=== PATIENT | female | born 1955 | race Caucasian/White ===

== ENCOUNTER 2019-04-01 14:30 | Inpatient (IN) ==
[2019-04-01] MEDS ORDERED: *HR* Heparin 5,000 UNIT/ML VIAL IVP PRN ×2 (14:49)
[2019-04-01] MEDS ORDERED: 0.9 % Sodium Chloride 1,000 ML IVC ONE ×2 (14:49→15:58)
[2019-04-01] MEDS ORDERED: *HR* Heparin 5,000 UNIT/ML VIAL IVP ONE (14:49)
[2019-04-01] MEDS: Nitroglycerin 0.4 MG TAB.SUBL SL PRN ×2 (15:07→15:13)
[2019-04-01] MEDS ORDERED: Ondansetron 4 MG/2 ML VIAL IVP ONE (15:16)
[2019-04-01 15:26] LABS: Hematocrit 36.2 % (35.3-44.9); Hemoglobin 12.6 g/dL (11.5-15.4); Mean Corpuscular HGB Conc 34.8 g/dL (31.6-35.5); Mean Corpuscular Hemoglobin 29.7 pg (28.0-33.3); Mean Corpuscular Volume 85.4 fL (83.0-100.0); Mean Platelet Volume 9.6 fL (9.4-12.4); Platelet Count 182 K/mcL (140-400); Red Blood Count 4.24 M/mcL (3.82-4.97); Red Cell Distribution Width 11.9 % (11.5-14.5); White Blood Count 6.7 K/mcL (4.3-11.1)
[2019-04-01] MEDS ORDERED: Nitroglycerin 25 MG/250 ML INFUS..BTL IVC SCH (15:30)
[2019-04-01] MEDS ORDERED: *HR* LORazepam 2 MG/ML VIAL IVP ONE (15:33)
[2019-04-01] MEDS ORDERED: *HR* FentaNYL (PF) 100 MCG/2 ML VIAL IVP ONE (15:33)
[2019-04-01 15:43] LABS: Prothrombin Time 11.9 Seconds (9.4-12.1)
[2019-04-01 15:45] LABS: Heparin anti-factor XA UFH 0.01 IU/mL (0.30-0.70)
[2019-04-01 15:47] LABS: Alanine Aminotransferase 32 Units/L (7-52); Albumin 4.4 g/dL (3.5-5.7); Albumin/Globulin Ratio 1.8 (1.1-2.2); Alkaline Phosphatase 76 Units/L (34-104); Aspartate Amino Transferase 27 Units/L (13-39); BUN/Creatinine Ratio 19 (6-26); Bilirubin,Total 0.9 mg/dL (0.3-1.0); Blood Urea Nitrogen 14 mg/dL (8-23); Calcium 9.5 mg/dL (8.6-10.3); Carbon Dioxide 24 mEq/L (23-29); Chloride 100 mEq/L (98-107); Globulin 2.4 g/dL (2.4-3.5); Glucose 110 mg/dL (70-105); Osmolality,Calculated 285 (280-300); Potassium 3.5 mEq/L (3.5-5.1); Sodium 137 mEq/L (136-145); Total Protein 6.8 g/dL (6.4-8.9); eGFR For African Americans > 60 (> 60); eGFR For Non-African Americans > 60 (> 60)
[2019-04-01 15:52] LABS: Troponin I 1.05 ng/mL (< 0.04)
[2019-04-01] MEDS ORDERED: Isovue-370 500 ML BOTTLE IVP ONE (15:59)
[2019-04-01] MEDS: Heparin 25,000 UNIT/250 ML D5W 25,000 UNIT/250 ML IV.SOLN IVC SCH (16:51)
[2019-04-01] MEDS ORDERED: *HR* Metoprolol 5 MG/5 ML VIAL IVP PRN (17:24)
[2019-04-01] MEDS ORDERED: Melatonin 3 MG TABLET PO PRN (22:11)
[2019-04-02] MEDS ORDERED: levoFLOXacin 750 MG/150 ML 750 MG/150 ML BAG IVPB SCH (02:00)
[2019-04-02 03:08] LABS: Basophils % 0.2 %; Hematocrit 33.3 % (35.3-44.9); Hemoglobin 11.4 g/dL (11.5-15.4); Immature Granulocytes % 0.2 % (0-4); Lymphocytes # 1.2 K/mcL (0.6-4.6); Lymphocytes % 20.1 %; Mean Corpuscular HGB Conc 34.2 g/dL (31.6-35.5); Mean Corpuscular Hemoglobin 29.8 pg (28.0-33.3); Mean Corpuscular Volume 87.2 fL (83.0-100.0); Mean Platelet Volume 9.6 fL (9.4-12.4); Monocytes # 0.3 K/mcL (0.0-1.3); Neutrophils # 4.2 K/mcL (1.6-8.9); Platelet Count 153 K/mcL (140-400); Red Blood Count 3.82 M/mcL (3.82-4.97); Red Cell Distribution Width 12.1 % (11.5-14.5); Segmented Neutrophils % 73.5 %; White Blood Count 5.7 K/mcL (4.3-11.1)
[2019-04-02] MEDS ORDERED: Acetaminophen IV 1,000 MG/100 ML INFUS..BTL IVPB ONE (04:48)
[2019-04-02] MEDS ORDERED: *HR* HYDROmorphone (PF) 1 MG/ML SYRINGE IVP ONE (08:59)
[2019-04-02] MEDS: Ondansetron 4 MG/2 ML VIAL IVP PRN ×2 (09:10→09:12)
[2019-04-02] MEDS ORDERED: *HR* LORazepam 0.5 MG TABLET PO PRN (14:04)
[2019-04-02] MEDS ORDERED: Furosemide 20 MG/2 ML VIAL IVP ONE (14:44)
[2019-04-02] MEDS: Pregabalin 50 MG CAPSULE PO PRN (20:39)
[2019-04-02] MEDS: *HR* OxyCODONE/APAP 5/325 TABLET PO PRN (20:40)
[2019-04-02] MEDS: Heparin 25,000 UNIT/250 ML D5W 25,000 UNIT/250 ML IV.SOLN IVC SCH (21:38)
[2019-04-03 01:44] LABS: Basophils % 0.2 %; Eosinophils % 0.2 %; Hematocrit 30.8 % (35.3-44.9); Hemoglobin 10.7 g/dL (11.5-15.4); Immature Granulocytes % 0.2 % (0-4); Lymphocytes # 1.2 K/mcL (0.6-4.6); Lymphocytes % 24.6 %; Mean Corpuscular HGB Conc 34.7 g/dL (31.6-35.5); Mean Corpuscular Hemoglobin 29.9 pg (28.0-33.3); Mean Platelet Volume 9.5 fL (9.4-12.4); Monocytes # 0.4 K/mcL (0.0-1.3); Monocytes % 7.8 %; Neutrophils # 3.2 K/mcL (1.6-8.9); Platelet Count 152 K/mcL (140-400); Red Blood Count 3.58 M/mcL (3.82-4.97); Red Cell Distribution Width 11.9 % (11.5-14.5); White Blood Count 4.8 K/mcL (4.3-11.1)
[2019-04-03 01:49] LABS: INR 1.2; Prothrombin Time 13.9 Seconds (9.4-12.1)
[2019-04-03 02:00] LABS: BUN/Creatinine Ratio 16 (6-26); Blood Urea Nitrogen 11 mg/dL (8-23); Calcium 8.9 mg/dL (8.6-10.3); Carbon Dioxide 27 mEq/L (23-29); Chloride 104 mEq/L (98-107); Glucose 107 mg/dL (70-105); Osmolality,Calculated 284 (280-300); Potassium 3.7 mEq/L (3.5-5.1); Sodium 137 mEq/L (136-145); eGFR For African Americans > 60 (> 60); eGFR For Non-African Americans > 60 (> 60)
[2019-04-03] MEDS: *HR* OxyCODONE/APAP 5/325 TABLET PO PRN ×2 (03:30→23:37)
[2019-04-03] MEDS ORDERED: Aminoglycoside Consult 1 EACH MC ONE (07:28)
[2019-04-03] MEDS: Pregabalin 50 MG CAPSULE PO PRN (09:58)
[2019-04-03] MEDS ORDERED: Acetaminophen 325 MG TABLET PO PRN (13:40)
[2019-04-03] MEDS ORDERED: Verapamil 5 MG/2 ML VIAL ONE (15:30)
[2019-04-03] MEDS ORDERED: Nitroglycerin 1,000 MCG/10 ML VIAL IV ONE (15:31)
[2019-04-03] MEDS ORDERED: *HR* Heparin 10,000 UNIT/10 ML VIAL ONE (15:31)
[2019-04-03] MEDS ORDERED: 0.9 % Sodium Chloride 1,000 ML ONE (15:31)
[2019-04-03] MEDS ORDERED: Heparin 1,000 UNITS/500 mL 500 ML ONE (15:31)
[2019-04-03] MEDS ORDERED: ISOVUE-370 200 ML INFUS..BTL ONE (15:31)
[2019-04-03] MEDS ORDERED: *HR* Midazolam HCl 2 MG/2 ML VIAL ONE (15:43)
[2019-04-03] MEDS ORDERED: *HR* FentaNYL (PF) 100 MCG/2 ML VIAL ONE (15:44)
[2019-04-03] MEDS ORDERED: levoFLOXacin 750 MG/150 ML 750 MG/150 ML BAG IVPB SCH ×2 (15:45→18:00)
[2019-04-03] MEDS ORDERED: Piperacillin/Tazobactam 3.375 GM in 0.9 % Sodium Chloride Mini Bag 100 ML IVPB SCH ×2 (16:00→18:00)
[2019-04-03] MEDS ORDERED: VANCOMYCIN 5 MG/ML IVP SCH ×3 (16:30)
[2019-04-03] MEDS ORDERED: *HR* Heparin 5,000 UNIT/ML VIAL SQ SCH (18:00)
[2019-04-03 18:38] LABS: Hematocrit 32.4 % (35.3-44.9); Hemoglobin 10.9 g/dL (11.5-15.4)
[2019-04-03] MEDS: Ondansetron 4 MG/2 ML VIAL IVP PRN (20:16)
[2019-04-03 21:08] LABS: Bilirubin,Urine Negative (Negative); Blood,Urine Small (Negative); Clarity,Urine Clear (Clear); Color,Urine Yellow (Yellow); Glucose,Urine (UA) Normal (Normal); Ketones,Urine 40 mg/dL (Negative); Leukocyte Esterase,Urine Moderate (Negative); Nitrite,Urine Negative (Negative); PH,Urine 5.5 pH Units (5.0-8.0); Protein,Urine Negative (Neg-Trace); Specific Gravity,Urine > 1.030 (1.010-1.025)
[2019-04-03 21:09] LABS: Bacteria,Urine None Seen per hpf (None-Few); Hyaline Casts,Urine None Seen per lpf (None-Few); RBC,Urine 0-3 per hpf (0-3); Squamous Epithelial Cell,Urine Many per lpf (None-Few); WBC,Urine 30-50 per hpf (0-3)
[2019-04-03 22:18] LABS: Adenovirus Not Detected (Not Detect); Bordetella Pertussis Not Detected (Not Detect); Chlamydophila pneumoniae Not Detected (Not Detect); Coronavirus 229E Not Detected (Not Detect); Coronavirus HKU1 Not Detected (Not Detect); Coronavirus NL63 Not Detected (Not Detect); Coronavirus OC43 Not Detected (Not Detect); Human Metapneumovirus Not Detected (Not Detect); Human Rhinovirus/Enterovirus Not Detected (Not Detect); Influenza A Subtype 2009 H1 Not Detected (Not Detect); Influenza A Untypeable Not Detected (Not Detect); Influenza B Not Detected (Not Detect); Mycoplasma pneumoniae Not Detected (Not Detect); Parainfluenza Virus 1 Not Detected (Not Detect); Parainfluenza Virus 2 Not Detected (Not Detect); Parainfluenza Virus 3 Not Detected (Not Detect); Parainfluenza Virus 4 Not Detected (Not Detect); Respiratory Syncytial Virus Not Detected (Not Detect)
[2019-04-04 02:20] LABS: Eosinophils % 0.9 %; Hematocrit 31.3 % (35.3-44.9); Hemoglobin 10.6 g/dL (11.5-15.4); Immature Granulocytes % 0.6 % (0-4); Lymphocytes # 1.1 K/mcL (0.6-4.6); Lymphocytes % 30.8 %; Mean Corpuscular HGB Conc 33.9 g/dL (31.6-35.5); Mean Corpuscular Hemoglobin 29.2 pg (28.0-33.3); Mean Corpuscular Volume 86.2 fL (83.0-100.0); Mean Platelet Volume 9.5 fL (9.4-12.4); Monocytes # 0.4 K/mcL (0.0-1.3); Monocytes % 10.5 %; Platelet Count 150 K/mcL (140-400); Red Blood Count 3.63 M/mcL (3.82-4.97); Red Cell Distribution Width 11.9 % (11.5-14.5); Segmented Neutrophils % 57.2 %; White Blood Count 3.4 K/mcL (4.3-11.1)
[2019-04-04 02:39] LABS: BUN/Creatinine Ratio 13 (6-26); Blood Urea Nitrogen 8 mg/dL (8-23); Carbon Dioxide 26 mEq/L (23-29); Chloride 103 mEq/L (98-107); Glucose 89 mg/dL (70-105); Osmolality,Calculated 282 (280-300); Potassium 3.6 mEq/L (3.5-5.1); Sodium 137 mEq/L (136-145); eGFR For African Americans > 60 (> 60); eGFR For Non-African Americans > 60 (> 60)
[2019-04-04] MEDS ORDERED: Piperacillin/Tazobactam 3.375 GM in 0.9 % Sodium Chloride Mini Bag 100 ML IVPB SCH (05:00)
[2019-04-04] MEDS ORDERED: *HR* Heparin 5,000 UNIT/ML VIAL SQ SCH (06:00)
[2019-04-04] MEDS ORDERED: *HR* Heparin 5,000 UNIT/ML VIAL IVP PRN ×2 (11:06)
[2019-04-04] MEDS ORDERED: Heparin 25,000 UNIT/250 ML D5W 25,000 UNIT/250 ML IV.SOLN IVC SCH (11:15)
[2019-04-04 11:58] LABS: Hematocrit 34.2 % (35.3-44.9); Hemoglobin 11.9 g/dL (11.5-15.4); Mean Corpuscular HGB Conc 34.8 g/dL (31.6-35.5); Mean Corpuscular Hemoglobin 30.4 pg (28.0-33.3); Mean Corpuscular Volume 87.2 fL (83.0-100.0); Mean Platelet Volume 9.4 fL (9.4-12.4); Platelet Count 157 K/mcL (140-400); Red Blood Count 3.92 M/mcL (3.82-4.97); Red Cell Distribution Width 11.9 % (11.5-14.5); White Blood Count 3.4 K/mcL (4.3-11.1)
[2019-04-04 12:05] LABS: INR 1.2; Prothrombin Time 13.9 Seconds (9.4-12.1)
[2019-04-04] MEDS ORDERED: Heparin 1,000 UNITS/500 mL 500 ML ONE ×2 (14:23→16:05)
[2019-04-04] MEDS ORDERED: *HR* Heparin 10,000 UNIT/10 ML VIAL ONE (14:23)
[2019-04-04] MEDS ORDERED: ISOVUE-370 200 ML INFUS..BTL ONE ×3 (14:23→16:05)
[2019-04-04] MEDS ORDERED: 0.9 % Sodium Chloride 1,000 ML ONE ×2 (14:23→14:25)
[2019-04-04] MEDS ORDERED: Nitroglycerin 1,000 MCG/10 ML VIAL IV ONE (14:23)
[2019-04-04] MEDS ORDERED: *HR* Bivalirudin 250 MG VIAL IVC ONE (14:24)
[2019-04-04] MEDS ORDERED: *HR* Midazolam HCl 2 MG/2 ML VIAL ONE (14:24)
[2019-04-04] MEDS ORDERED: *HR* FentaNYL (PF) 100 MCG/2 ML VIAL ONE (14:25)
[2019-04-04 15:19] LABS: ANA IgG by ELISA NONE DETECTED (None Detected)
[2019-04-04] MEDS ORDERED: *HR* Ticagrelor 90 MG TABLET ONE (15:31)
[2019-04-04] MEDS ORDERED: levoFLOXacin 750 MG/150 ML 750 MG/150 ML BAG IVPB SCH (17:00)
[2019-04-04] MEDS ORDERED: *HR* Atropine Sulfate 1 MG/10 ML SYRINGE ONE (19:18)
[2019-04-04] MEDS: *HR* OxyCODONE/APAP 5/325 TABLET PO PRN (20:24)
[2019-04-05] MEDS: Ondansetron 4 MG/2 ML VIAL IVP PRN ×2 (01:01→08:16)
[2019-04-05 04:33] LABS: Basophils % 0.2 %; Eosinophils # 0.1 K/mcL (0.0-0.6); Eosinophils % 1.5 %; Hematocrit 32.8 % (35.3-44.9); Hemoglobin 11.2 g/dL (11.5-15.4); Immature Granulocytes % 0.2 % (0-4); Lymphocytes % 23.5 %; Mean Corpuscular HGB Conc 34.1 g/dL (31.6-35.5); Mean Corpuscular Hemoglobin 29.3 pg (28.0-33.3); Mean Corpuscular Volume 85.9 fL (83.0-100.0); Mean Platelet Volume 9.9 fL (9.4-12.4); Monocytes # 0.4 K/mcL (0.0-1.3); Monocytes % 9.4 %; Neutrophils # 2.6 K/mcL (1.6-8.9); Platelet Count 172 K/mcL (140-400); Red Blood Count 3.82 M/mcL (3.82-4.97); Segmented Neutrophils % 65.2 %
[2019-04-05 04:48] LABS: Chol/HDL Ratio 4.1 (0-4.9)
[2019-04-05 04:50] LABS: BUN/Creatinine Ratio 15 (6-26); Blood Urea Nitrogen 9 mg/dL (8-23); Calcium 9.1 mg/dL (8.6-10.3); Carbon Dioxide 26 mEq/L (23-29); Chloride 103 mEq/L (98-107); Glucose 169 mg/dL (70-105); Osmolality,Calculated 285 (280-300); Potassium 3.4 mEq/L (3.5-5.1); Sodium 136 mEq/L (136-145); eGFR For African Americans > 60 (> 60); eGFR For Non-African Americans > 60 (> 60)
[2019-04-05] MEDS: *HR* OxyCODONE/APAP 5/325 TABLET PO PRN (08:15)
[2019-04-05] MEDS ORDERED: Aspirin 81 MG TAB.CHEW PO SCH (09:00)
[2019-04-05 09:56] LABS: Serine Protease-3 Antibody 0 AU/mL (0-19)
[2019-04-05 11:22] VITALS: BP 113/64
[2019-04-05] MEDS ORDERED: *HR* Succinylcholine 200 MG/10 ML VIAL IVP ONE (12:36)
[2019-04-05] MEDS ORDERED: Lidocaine -MPF 2% 2 ML VIAL ONE (12:36)
[2019-04-05] MEDS ORDERED: *HR* FentaNYL (PF) 100 MCG/2 ML VIAL ONE (12:36)
[2019-04-05] MEDS ORDERED: *HR* Propofol 200 MG/20 ML VIAL IVP ONE (12:36)
== END 2019-04-05 14:29 | disposition home or self-care (01) | DRG 246 ==
LOC: EMEROOARM 14:30 → SUATTDRO 18:35 → 2NENU 18:35 → 2NNU 04-04 16:09
PROVIDERS: ADMIT Internal Medicine; ATTEND Internal Medicine

== ENCOUNTER 2019-05-26 08:22 | Observation (INO) ==
[2019-05-26] MEDS ORDERED: Nitroglycerin 0.4 MG TAB.SUBL SL PRN ×2 (08:29→10:55)
[2019-05-26 08:50] LABS: Basophils % 0.5 %; Eosinophils # 0.1 K/mcL (0.0-0.6); Eosinophils % 1.3 %; Hematocrit 39.9 % (35.3-44.9); Hemoglobin 13.8 g/dL (11.5-15.4); Immature Granulocytes % 0.3 % (0-4); Lymphocytes # 1.4 K/mcL (0.6-4.6); Lymphocytes % 35.5 %; Mean Corpuscular HGB Conc 34.6 g/dL (31.6-35.5); Mean Corpuscular Hemoglobin 29.5 pg (28.0-33.3); Mean Corpuscular Volume 85.3 fL (83.0-100.0); Monocytes # 0.3 K/mcL (0.0-1.3); Monocytes % 7.7 %; Neutrophils # 2.1 K/mcL (1.6-8.9); Platelet Count 193 K/mcL (140-400); Red Blood Count 4.68 M/mcL (3.82-4.97); Red Cell Distribution Width 12.8 % (11.5-14.5); Segmented Neutrophils % 54.7 %; White Blood Count 3.9 K/mcL (4.3-11.1)
[2019-05-26 08:52] LABS: INR 1.1; Prothrombin Time 12.5 Seconds (9.4-12.1)
[2019-05-26 08:55] LABS: Activated Partial Thrombo Time 35.3 Seconds (26.0-36.0)
[2019-05-26 09:15] LABS: BUN/Creatinine Ratio 25 (6-26); Blood Urea Nitrogen 16 mg/dL (8-23); Calcium 10.1 mg/dL (8.6-10.3); Carbon Dioxide 28 mEq/L (23-29); Chloride 101 mEq/L (98-107); Glucose 100 mg/dL (70-105); Osmolality,Calculated 289 (280-300); Potassium 3.8 mEq/L (3.5-5.1); Sodium 139 mEq/L (136-145); Troponin I < 0.03 ng/mL (< 0.04); eGFR For African Americans > 60 (> 60); eGFR For Non-African Americans > 60 (> 60)
[2019-05-26] MEDS ORDERED: Naloxone 0.4 MG/ML INJ IVP PRN (10:16)
[2019-05-26] MEDS ORDERED: Pregabalin 50 MG CAPSULE PO PRN (10:55)
[2019-05-26] MEDS ORDERED: *HR* Heparin 5,000 UNIT/ML VIAL SQ SCH (14:00)
[2019-05-26] MEDS: *HR* OxyCODONE/APAP 5/325 TABLET PO PRN (16:43)
[2019-05-27] MEDS ORDERED: Aspirin 81 MG TAB.CHEW PO SCH (09:00)
[2019-05-27] MEDS: *HR* OxyCODONE/APAP 5/325 TABLET PO PRN (16:05)
[2019-05-27 16:07] VITALS: BP 106/58
== END 2019-05-27 17:03 | disposition home or self-care (01) ==
LOC: 2ANU 08:22 → EMEROOARM 08:22 → SUATTDRO 09:36 → 2ANU 10:18
PROVIDERS: ADMIT Internal Medicine; ATTEND Family Medicine

== ENCOUNTER 2021-11-16 09:39 | Observation (INO) ==
[2021-11-16] MEDS ORDERED: Aspirin 81 MG TAB.CHEW PO STA (10:23)
[2021-11-16 10:29] LABS: Basophils % 0.6 %; Eosinophils # 0.1 K/mcL (0.0-0.6); Eosinophils % 1.8 %; Hematocrit 37.8 % (35.3-44.9); Hemoglobin 12.8 g/dL (11.5-15.4); Immature Granulocytes % 0.3 % (0-4); Lymphocytes # 1.1 K/mcL (0.6-4.6); Lymphocytes % 33.2 %; Mean Corpuscular HGB Conc 33.9 g/dL (31.6-35.5); Mean Corpuscular Hemoglobin 29.5 pg (28.0-33.3); Mean Corpuscular Volume 87.1 fL (83.0-100.0); Mean Platelet Volume 9.3 fL (9.4-12.4); Monocytes # 0.3 K/mcL (0.0-1.3); Monocytes % 8.4 %; Neutrophils # 1.9 K/mcL (1.6-8.9); Platelet Count 173 K/mcL (140-400); Red Blood Count 4.34 M/mcL (3.82-4.97); Red Cell Distribution Width 13.1 % (11.5-14.5); Segmented Neutrophils % 55.7 %; White Blood Count 3.3 K/mcL (4.3-11.1)
[2021-11-16 10:54] LABS: Alanine Aminotransferase 19 Units/L (7-52); Albumin 4.5 g/dL (3.5-5.7); Alkaline Phosphatase 72 Units/L (34-104); Aspartate Amino Transferase 19 Units/L (13-39); BUN/Creatinine Ratio 14 (6-26); Blood Urea Nitrogen 10 mg/dL (8-23); Calcium 9.6 mg/dL (8.6-10.3); Carbon Dioxide 28 mEq/L (23-29); Chloride 102 mEq/L (98-107); Globulin 2.2 g/dL (2.4-3.5); Glucose 132 mg/dL (70-105); Osmolality,Calculated 285 (280-300); Potassium 3.8 mEq/L (3.5-5.1); Sodium 137 mEq/L (136-145); Total Protein 6.7 g/dL (6.4-8.9); Troponin I < 0.03 ng/mL (< 0.04); eGFR For African Americans > 60 (> 60); eGFR For Non-African Americans > 60 (> 60)
[2021-11-16 11:06] LABS: INR 1.1; Prothrombin Time 12.4 Seconds (9.4-12.1)
[2021-11-16 11:09] LABS: Activated Partial Thrombo Time 35.3 Seconds (26.0-36.0)
[2021-11-16] MEDS ORDERED: Isovue-370 500 ML BOTTLE IVP ONE (11:51)
[2021-11-16] MEDS ORDERED: Naloxone 0.4 MG/ML INJ IVP PRN (13:23)
[2021-11-16] MEDS ORDERED: Ondansetron 4 MG/2 ML VIAL IVP PRN (13:23)
[2021-11-16] MEDS ORDERED: Morphine Sulfate 2 MG/ML SYRINGE IVP PRN (13:28)
[2021-11-16 16:15] LABS: Magnesium 1.9 mg/dL (1.6-2.6); Phosphorous 3.5 mg/dL (2.7-4.5)
[2021-11-16 16:17] LABS: Troponin I < 0.03 ng/mL (< 0.04)
[2021-11-16 16:30] LABS: Thyroid Stimulating Hormone 1.971 mcIU/mL (0.340-5.600)
[2021-11-17 02:34] LABS: BUN/Creatinine Ratio 18 (6-26); Blood Urea Nitrogen 16 mg/dL (8-23); Calcium 9.7 mg/dL (8.6-10.3); Carbon Dioxide 29 mEq/L (23-29); Chloride 104 mEq/L (98-107); Glucose 104 mg/dL (70-105); Osmolality,Calculated 287 (280-300); Potassium 4.7 mEq/L (3.5-5.1); Sodium 138 mEq/L (136-145); eGFR For African Americans > 60 (> 60); eGFR For Non-African Americans > 60 (> 60)
[2021-11-17] MEDS: *HR* Enoxaparin 40 MG/0.4 ML SYRINGE SQ SCH (05:30)
[2021-11-17] MEDS ORDERED: Perflutren Lipid Microsphere 1.3 ML in 0.9 % Sodium Chloride 8.7 ML IVP PRN (08:26)
[2021-11-17 12:50] LABS: Chol/HDL Ratio 2.4 (0-4.9); Cholesterol 130 mg/dL (< 200); HDL Cholesterol 54 mg/dL (40-59); LDL Cholesterol,Calculated 60 mg/dL (< 100); Triglycerides 80 mg/dL (< 150)
[2021-11-17 14:18] LABS: Estimated Average Glucose 103 mg/dl; Hemoglobin A1C 5.2 %
[2021-11-17] MEDS: Pregabalin 50 MG CAPSULE PO SCH (20:58)
[2021-11-18] MEDS: *HR* Enoxaparin 40 MG/0.4 ML SYRINGE SQ SCH (05:28)
[2021-11-18] MEDS: Pregabalin 50 MG CAPSULE PO SCH ×2 (09:15→19:50)
[2021-11-19 03:22] VITALS: TEMP 97.8
[2021-11-19] MEDS: *HR* Enoxaparin 40 MG/0.4 ML SYRINGE SQ SCH (05:50)
[2021-11-19] MEDS ORDERED: Regadenoson 0.4 MG/5 ML SYRINGE IVP ONE (06:29)
[2021-11-19] MEDS: Pregabalin 50 MG CAPSULE PO SCH (09:17)
[2021-11-19] MEDS ORDERED: Ranolazine 500 MG TAB.ER.12H PO SCH (10:45)
[2021-11-19 11:04] VITALS: BP 114/70; PULSE 50; O2SAT 95
== END 2021-11-19 12:02 | disposition home or self-care (01) ==
LOC: 3BNU 09:39 → EMEROOARM 09:39 → SUATTDRO 12:13 → 3BNU 13:07
PROVIDERS: ADMIT Student in an Organized Health Care Education/Training Program; ATTEND Internal Medicine

== ENCOUNTER 2022-03-24 12:49 | Inpatient (IN) ==
[2022-03-24 13:42] LABS: Basophils % 0.4 %; Eosinophils # 0.1 K/mcL (0.0-0.6); Eosinophils % 1.1 %; Hematocrit 35.5 % (35.3-44.9); Immature Granulocytes % 0.2 % (0-4); Lymphocytes # 1.6 K/mcL (0.6-4.6); Lymphocytes % 33.4 %; Mean Corpuscular HGB Conc 33.8 g/dL (31.6-35.5); Mean Corpuscular Volume 88.8 fL (83.0-100.0); Mean Platelet Volume 9.2 fL (9.4-12.4); Monocytes # 0.3 K/mcL (0.0-1.3); Monocytes % 6.9 %; Neutrophils # 2.7 K/mcL (1.6-8.9); Platelet Count 172 K/mcL (140-400); Red Cell Distribution Width 12.3 % (11.5-14.5); White Blood Count 4.6 K/mcL (4.3-11.1)
[2022-03-24 14:02] LABS: BUN/Creatinine Ratio 21 (6-26); Blood Urea Nitrogen 12 mg/dL (8-23); Calcium 10.1 mg/dL (8.6-10.3); Carbon Dioxide 29 mEq/L (23-29); Chloride 103 mEq/L (98-107); Glucose 89 mg/dL (70-105); Osmolality,Calculated 283 (280-300); Sodium 137 mEq/L (136-145); Troponin I < 0.03 ng/mL (< 0.04)
[2022-03-24 15:21] LABS: INR 1.1; Prothrombin Time 12.7 Seconds (9.4-12.1)
[2022-03-24] MEDS ORDERED: Melatonin 3 MG TABLET PO PRN (16:22)
[2022-03-24] MEDS ORDERED: Naloxone 0.4 MG/ML INJ IVP PRN (16:22)
[2022-03-24] MEDS ORDERED: MOM Conc 10 ML UD.LIQ PO PRN (16:22)
[2022-03-24] MEDS ORDERED: *HR* OxyCODONE/APAP 5/325 TABLET PO PRN (16:54)
[2022-03-24 19:17] LABS: Adenovirus Not Detected (Not Detect); Bordetella Pertussis Not Detected (Not Detect); Chlamydophila pneumoniae Not Detected (Not Detect); Coronavirus 229E Not Detected (Not Detect); Coronavirus HKU1 Not Detected (Not Detect); Coronavirus NL63 Not Detected (Not Detect); Coronavirus OC43 Not Detected (Not Detect); Human Metapneumovirus Not Detected (Not Detect); Human Rhinovirus/Enterovirus Not Detected (Not Detect); Influenza A Subtype 2009 H1 Not Detected (Not Detect); Influenza B Not Detected (Not Detect); Mycoplasma pneumoniae Not Detected (Not Detect); Parainfluenza Virus 1 Not Detected (Not Detect); Parainfluenza Virus 2 Not Detected (Not Detect); Parainfluenza Virus 3 Not Detected (Not Detect); Parainfluenza Virus 4 Not Detected (Not Detect); Respiratory Syncytial Virus Not Detected (Not Detect); SARS-CoV-2 Not Detected (Not Detect)
[2022-03-25 01:51] LABS: Basophils % 0.5 %; Eosinophils # 0.1 K/mcL (0.0-0.6); Eosinophils % 1.5 %; Hematocrit 32.7 % (35.3-44.9); Hemoglobin 11.3 g/dL (11.5-15.4); Immature Granulocytes % 0.2 % (0-4); Lymphocytes # 1.8 K/mcL (0.6-4.6); Lymphocytes % 43.1 %; Mean Corpuscular HGB Conc 34.6 g/dL (31.6-35.5); Mean Corpuscular Hemoglobin 29.8 pg (28.0-33.3); Mean Corpuscular Volume 86.3 fL (83.0-100.0); Mean Platelet Volume 9.5 fL (9.4-12.4); Monocytes # 0.3 K/mcL (0.0-1.3); Monocytes % 8.1 %; Neutrophils # 1.9 K/mcL (1.6-8.9); Platelet Count 167 K/mcL (140-400); Red Blood Count 3.79 M/mcL (3.82-4.97); Red Cell Distribution Width 12.3 % (11.5-14.5); Segmented Neutrophils % 46.6 %; White Blood Count 4.1 K/mcL (4.3-11.1)
[2022-03-25 02:25] LABS: Alanine Aminotransferase 16 Units/L (7-52); Albumin/Globulin Ratio 1.8 (1.1-2.2); Alkaline Phosphatase 57 Units/L (34-104); Aspartate Amino Transferase 17 Units/L (13-39); BUN/Creatinine Ratio 17 (6-26); Bilirubin,Total 0.7 mg/dL (0.3-1.0); Blood Urea Nitrogen 12 mg/dL (8-23); Calcium 9.7 mg/dL (8.6-10.3); Carbon Dioxide 28 mEq/L (23-29); Chloride 105 mEq/L (98-107); Chol/HDL Ratio 2.4 (0-4.9); Cholesterol 120 mg/dL (< 200); Globulin 2.2 g/dL (2.4-3.5); Glucose 113 mg/dL (70-105); HDL Cholesterol 51 mg/dL (40-59); LDL Cholesterol,Calculated 52 mg/dL (< 100); Osmolality,Calculated 289 (280-300); Potassium 3.7 mEq/L (3.5-5.1); Sodium 139 mEq/L (136-145); Total Protein 6.2 g/dL (6.4-8.9); Triglycerides 85 mg/dL (< 150)
[2022-03-25] MEDS: *HR* Enoxaparin 40 MG/0.4 ML SYRINGE SQ SCH ×2 (05:39→14:01)
[2022-03-25] MEDS ORDERED: Pregabalin 50 MG CAPSULE PO SCH (09:00)
[2022-03-25] MEDS: *HR* OxyCODONE/APAP 5/325 TABLET PO PRN (13:33)
[2022-03-26] MEDS: *HR* OxyCODONE/APAP 5/325 TABLET PO PRN ×2 (01:06→09:18)
[2022-03-26] MEDS ORDERED: 0.9 % Sodium Chloride 500 ML ONE (07:10)
[2022-03-26] MEDS ORDERED: 0.9 % Sodium Chloride 1,000 ML ONE (07:10)
[2022-03-26] MEDS ORDERED: *HR* Midazolam HCl 2 MG/2 ML VIAL ONE ×3 (07:43→08:30)
[2022-03-26] MEDS ORDERED: *HR* FentaNYL (PF) 100 MCG/2 ML VIAL ONE ×2 (07:43→08:30)
[2022-03-26] MEDS: Pregabalin 50 MG CAPSULE PO SCH (08:06)
[2022-03-26] MEDS ORDERED: Iopamidol - 300 100 ML INFUS..BTL ONE (08:08)
[2022-03-26] MEDS: Ondansetron ODT 4 MG TAB.RAPDIS SL PRN ×2 (12:23→20:28)
[2022-03-26] MEDS ORDERED: *HR* OxyCODONE/APAP 5/325 TABLET PO ONE (12:29)
[2022-03-26] MEDS ORDERED: Morphine Sulfate 2 MG/ML SYRINGE IVP PRN (16:43)
[2022-03-26] MEDS: CeFAZolin 2 GM/120 ML BAG IVPB SCH (16:50)
[2022-03-26] MEDS: Acetaminophen 325 MG TABLET PO SCH ×2 (16:56→22:59)
[2022-03-26] MEDS: *HR* OxyCODONE Immed Rel 5 MG TABLET PO PRN ×2 (16:57→22:55)
[2022-03-27] MEDS: CeFAZolin 2 GM/120 ML BAG IVPB SCH (00:54)
[2022-03-27] MEDS: Acetaminophen 325 MG TABLET PO SCH ×3 (04:47→17:17)
[2022-03-27] MEDS: Pregabalin 50 MG CAPSULE PO SCH (08:34)
[2022-03-27 08:37] VITALS: PULSE 60
[2022-03-27] MEDS ORDERED: GI Cocktail 40 ML EACH PO ONE (10:19)
[2022-03-27 11:41] VITALS: BP 122/76; TEMP 97.6; O2SAT 98
[2022-03-27] MEDS: *HR* OxyCODONE Immed Rel 5 MG TABLET PO PRN (14:29)
== END 2022-03-27 18:03 | disposition home or self-care (01) | DRG 244 ==
LOC: EMEROOARM 12:49 → 2NENU 12:49
PROVIDERS: ADMIT Internal Medicine; ATTEND Internal Medicine